=== PATIENT | female | born 1985 | race Caucasian/White ===

== ENCOUNTER 2017-11-29 05:54 | Day surgery (SDC) | payer OTHER, SELFPAY ==
[2017-11-29] VITALS (7 sets, daily range): BP systolic 110–156; BP diastolic 64–94; PULSE 62–79; RESP 16–18; TEMP 36.3–36.6; O2SAT 92–100; BMI 39.6
[2017-11-29 06:24] LABS: Internal QC Validated? YES +Cl - CLEAR BKGD; Pregnancy, Urine Negative Negative
--- NOTE | 2017-11-29 07:30 | CALC_PTH ---
PATIENT: PHI JURADO [place] [facility] [place][id number] AGE/SX: 32/F ROOM: RE11/29/[address]: Dr. Aminata Jovel MD : 1985 BED: DIS: 11/29/2017 SPEC #: [id number] RECD: 11/29/17 12:26 STATUS: DAY ANDREZ #: [id number] ZENA: 11/29/17 07:[address]: Aminata Jovel DEPT: SURGICAL PATHOLOGY RECD BY: Claire Chen ENTERED: 11/29/17 12:26 SP TYPE: Calculi OTHR DR: Dr. See Galvan MD Tissues: CALCULI Procedures: Surgery Specimen Level I HEADER OPERATION: Cysto, ureteroscopy, retro, laser, stent PRE-OP DIAGNOSIS: Calculus of ureter TISSUE SUBMITTED: Calculus of ureter GROSS DIAGNOSIS Calculus of ureter, removal: Unremarkable calculi (gross diagnosis only). AM:ema 11/30/17 COMMENT The calculus is submitted in its entirety for chemical stone analysis. The results from this study will be reported separately. GROSS DESCRIPTION Received in fixative is one container labeled with the patient's name and designated calculus of ureter. The specimen consists of multiple irregular fragments of bryant calculi that in aggregate measure 0.5 x 0.5 x 0.1 cm. The specimen is submitted in its entirety for chemical stone analysis. / AM:ema 11/29/17 CPT: 14389
[2017-11-29] MEDS: Cefazolin 2 GM in 0.9% Normal Saline 100 ML IV (07:42)
--- NOTE | 2017-11-29 07:47 | PCM.DC.URO ---
Discharge Diet: No Restrictions Discharge Activity: Return to Normal Activity, May not drive while taking narcotic pain medications., May Shower May resume sexual activity in: No Restrictions Call your doctor if you observe: Fever of 101 or Higher, Inability to urinate, Inability to have a bowel movement, Shortness of breath, Chest pain, Calf discomfort, Uncontrolled pain Allergies/Adverse Reactions: Allergies No Known Allergies Allergy (Verified 11/23/17 12:53) Medications to take at Discharge Escitalopram Oxalate [Lexapro] 10 mg PO DAILY 11/23/17 Primary Care Physician: See Galvan MD [Primary Care Provider] - Test Results: Test results from this visit will be discussed in further detail at your follow-up appointment, if applicable. Please Follow Up With: Aminata Jovel MD When: 1 week
[2017-11-29] MEDS: Lubricating Jelly 60 GM Tube 30 GM TOPICAL (07:50)
--- NOTE | 2017-11-29 09:02 | PCM.IMDPSTOP ---
Immediate Post-Op Note Date of Procedure: 11/29/17 Primary Surgeon/Physician: Aminata Jovel MD rn or lpn: Aminata Jovel Pre-Operative Diagnosis: right distal ureteral calculus Post-Operative Diagnosis: same Surgery/Procedure Performed:: cystoscopy, right retrograde pyelogram, right ureteroscopy, holmium laser lithotripsy, stone basket extraction, right ureteral stent insertion. Description of Surgical Findings:: large distal right ureteral stone with hydroureter above the level of the stone. removed with laser and basket extraction. stent with string left in place. Estimated Blood Loss: 3cc Specimen's removed: stone fragments Type of Anesthesia:: General Special Medications: ancef 2 grams - Admit VTE Documentation VTE Present on Admission: Yes VTE Mechan Device Prophylaxis: SCD's VTE Pharm Prophylaxis ordered?: No Reason prophylaxis not ordered:: Treatment Not Indicated
--- NOTE | 2017-11-29 09:05 | PCM.OPRPT ---
Problem List (1) Right ureteral calculus Status: Acute (2) Hydroureter on right Status: Acute Report of Operation Date of Procedure: 11/29/17 Pre-Operative Diagnosis: right distal ureteral calculus Post-Operative Diagnosis: same Surgery/Procedure Performed:: cystoscopy, right retrograde pyelogram, right ureteroscopy, holmium laser lithotripsy, stone basket extraction, right ureteral stent insertion. Description of Surgical Findings:: large distal right ureteral stone with hydroureter above the level of the stone. removed with laser and basket extraction. stent with string left in place. dance choreographer: Aminata Jovel Type of Anesthesia:: General Special Medications: ancef 2 grams Specimen's removed: stone fragments Estimated Blood Loss (mL): 3cc Description of Procedure: The patient is a 32-year-old female who has seen me in the office in regards to stone disease. We obtained a CT scan of the abdomen and pelvis with IV contrast which revealed the pelvic calculus was likely secondary to a ureteral stone. She began to develop symptoms including renal colic. After discussing the risks and benefits she agreed to proceed with surgical intervention. Patient was taken in the operating room and placed on the operating room table. Anesthesia monitored the head neck area IV access and vital signs throughout the case. Once anesthesia was a probably administered the patient was placed into dorsal lithotomy position was prepped and draped in usual sterile fashion. A cystourethroscopy revealed normal anatomy of the urethra, bladder and ureters. There were no masses, erythema or ulcerations, or foreign bodies identified. The right ureter was intubated with an 8 Tajik cone-tip catheter and a retrograde pyelogram was performed under fluoroscopic visualization. A distal obstructing stone approximately 1 cm in size was identified with hydroureter proximal to the stone. At this time a 0.035 Glidewire was passed into the renal pelvis and the SlimLine ureteroscope was used to identify the stone. The stone was lasered into multiple smaller fragments which were then removed using a 2.4 Tajik basket. Following removal of the largest stone fragments, a 6 Tajik 24 cm double-J stent was inserted with good curling achieved in the renal pelvis as well as the urinary bladder. The string was left in situ for removal of the stent in approximately 2 days. The patient tolerated the procedure well and was awakened and taken to recovery room in good condition. There were no complications during this procedure. - Complications none - Admit VTE Documentation VTE Present on Admission: Yes VTE Mechan Device Prophylaxis: SCD's VTE Pharm Prophylaxis ordered?: No Reason prophylaxis not ordered:: Treatment Not Indicated
[2017-12-05 12:07] LABS: Ca Oxalate, Dihydrate 30 % (.); Ca Oxalate, Monohydrate 40 % (.); Calcium Phosphate 30 % (.)
== END 2017-11-29 10:15 | disposition home or self-care (01) ==
LOC: SDC 05:56 → AC 05:57
PROVIDERS: Family Provider Family Medicine; PCP Family Medicine; Visit Provider Urology
PROC: 0TJ98ZZ Inspection of Ureter, Via Natural or Artificial Opening Endoscopic (ICD-10-PCS; CPT 52352; principal; 2017-11-29 07:20)
DX: N13.2 Hydronephrosis with renal and ureteral calculous obstruction (principal); F32.9 Major depressive disorder, single episode, unspecified; Z79.899 Other long term (current) drug therapy
CPT/HCPCS: 52356; 76000; 81025; 82360; 88300; J7120; C1769; C2617

== ENCOUNTER → 2020-01-22 | Outpatient (CLI) | payer OTHER, SELFPAY ==
[2020-01-22 14:39] VITALS: BMI 39.8
[2020-01-27 13:14] LABS: HPV APTIMA, High Risk Negative (Negative)
== END | disposition home or self-care (01) ==
LOC: LABSPEC 17:01
PROVIDERS: PCP Physician Assistant; Visit Provider Obstetrics & Gynecology
DX: Z12.4 Encounter for screening for malignant neoplasm of cervix (principal)
CPT/HCPCS: 87624; 88175; G0145

== ENCOUNTER → 2020-04-01 15:26 | Outpatient (CLI) | payer OTHER, SELFPAY ==
[2020-01-22 14:39] VITALS: BMI 39.8
[2020-04-01 17:14] LABS: NATERA MAILED SPECIMEN
== END ==
PROVIDERS: PCP Physician Assistant; Referring Provider Obstetrics & Gynecology; Visit Provider Obstetrics & Gynecology
DX: Z80.3 Family history of malignant neoplasm of breast (principal); Z80.41 Family history of malignant neoplasm of ovary
CPT/HCPCS: 36415

== ENCOUNTER → 2022-08-18 | Outpatient (CLI) | payer BC, SELFPAY | END | disposition home or self-care (01) | LOC: LABSPEC 15:03 | PROVIDERS: PCP Physician Assistant; Referring Provider Advanced Practice Midwife; Visit Provider Advanced Practice Midwife | DX: N89.8 Other specified noninflammatory disorders of vagina (principal) | CPT/HCPCS: 87070; 87205 ==

== ENCOUNTER 2023-01-20 08:03 | Emergency (ER) | payer BC, SELFPAY ==
[2023-01-20 08:04] VITALS: BP 135/95; PULSE 89; RESP 16; TEMP 36.2; O2SAT 100; BMI 38.9
--- NOTE | 2023-01-20 08:39 | ED.VIS.LOWEX ---
HPI History of Present Illness HPI Narrative: Patient presents with pain in her left hip that has been waxing and waning over the last 3 weeks. Patient states that became worse after doing a lot of lifting at a baseball tournament over the weekend. Patient describes her pain as constant aching but sharp with certain movements. Patient states it is worse with flexion and ambulation. Patient states she has taken some ibuprofen which has helped somewhat. Patient denies any direct trauma or injury. Patient denies any paresthesias or weakness. Chief Complaint: Lower Extremity Injury Informant: patient Onset/Context/Timing Onset: Weeks (3) Context: Gradual Onset Timing: Waxes and wanes Quality of Pain: Sharp (With movement) and Aching (Constant) Location: Left hip Worsened by: Flexion, ambulation Relieved by: Ibuprofen Associated Symptoms Associated Symptoms: Negative for Parasthesia, Weakness or Loss of Funtion PFSH [facility] Medical History Anxiety delivery delivered Home Medications rimegepant 75 mg disintegrating tablet (Nurtec ODT) 75 mg PO ONCE PRN migraine headache 08/18/22 [History Last Taken Unknown] hydrochlorothiazide 25 mg tablet 25 mg PO DAILY 01/20/23 [History Last Taken Unknown] hydrocodone-acetaminophen 5-325mg 5mg-325mg 1 tab PO Q6H PRN PRN Pain 3 days #10 TABLETS 01/20/23 [Rx Last Taken Unknown] Allergy/AdvReac Type Severity Reaction Status Date / Time No Known Allergies Allergy Verified 01/20/23 08:09 Family History Mother Diabetes Grandmother Breast cancer maternal Ovarian cancer paternal Aunt Breast cancer Surgical History Encounter for tubal ligation H/O lithotripsy Social History Smoking Status: Never smoker alcohol intake: current details: social substance use type: does not use caffeine: Yes what type of physical activity do you participate in: walking, yoga, aerobics and weight training frequency: 3-4 times per week seatbelt use: always do you feel safe at home: Yes additional social history: Valentín- Data Center Manager at [employer] Patient works at the [employer] [facility] ROS ED Constitutional Constitutional ED: Denies chills or fever(s) Eyes Eyes: Denies blurry vision or change in vision ENT ENT ED: Denies rhinorrhea or sore throat Cardiovascular Cardiovascular: Denies chest pain or palpitations Respiratory/Chest Respiratory/Chest: Denies cough or dyspnea Gastrointestinal Gastrointestinal: Denies nausea or vomiting Genitourinary Genitourinary ED: Denies dysuria or hematuria Musculoskeletal Musculoskeletal: Denies back pain or neck pain Integumentary Denies abscess or rash Neurologic Neurologic: Denies headache(s) or weakness Allergic/Immunologic Allergic/Immunologic ED: Denies mouth swelling or urticaria EXAM Physical Exam Const Vital Signs: 01/20/23 08:04 Temperature 97.2 F L Temperature Source Temporal Pulse Rate 89 Respiratory Rate 16 Blood Pressure 135/95 H Blood Pressure Mean 108 Pulse Ox 100 Oxygen Delivery Method Room Air Positive well nourished, well developed and obese General Appearance ED: well developed and NAD Nutritional Appearance: obese HEENT Reports moist mucous membranes Neck full ROM and supple Extremity Extremity Narrative: There is no tenderness to palpation, edema, or ecchymosis noted. There is pain with active and passive flexion and abduction. There is also pain with active and passive internal rotation. There is no pain with external rotation. There is some tenderness with axial loading. There is good range of motion. There is no deformity noted. Pedal pulses are equal bilaterally. Sensation was intact to light touch bilaterally in the lower extremities. Neuro oriented x3, CN's II-XII intact bilaterally, moves all extremities and no sensory deficits noted Sensorium / Orientation: alert Motor Exam: strength 5/5 throughout Psych mental status grossly normal MDM MDM MDM Narrative Medical decision making narrative: Differential diagnosis includes arthritis, degenerative changes, labral tear, ligamentous injury, occult fracture. X-rays of the left hip will be obtained to assess for degenerative arthritis and fracture. Radiography X-Ray: Left Hip, Read by ED Physician, Read by Radiologist, No Fracture and Normal Bony Alignment Diagnostic Testing: Clinical Impression(s) from Imaging Studies Hip/Pelvis X-Ray 01/20/23 08:56 IMPRESSION: Normal x-ray examination of the pelvis and hip. Electronically Signed: Devin Burrell MD at 10:08 EDT , X-rays of the left hip were obtained. There are 3 views. On my independent interpretation, there is no acute fracture or dislocation. There is questionable degenerative changes noted in the posterior acetabulum. Radiologist also interpreted the x-rays and does not feel there are any degenerative changes. Treatment and Re-Evaluation Narrative: Patient was advised of her findings. Patient was instructed to use ice to the area. Patient was instructed to continue ibuprofen as needed for pain. Patient was given a prescription for a short course of [place]. Patient was instructed to follow-up with her primary care physician in 5 to 7 days. Patient was advised she may need physical therapy or an MRI if this continues to be a problem. Patient understood and was agreeable with the plan. All questions were answered. Discharge Plan Triage Chief Complaint: Lower Extremity Injury ED Provider: Corby Cazares Dx/Rx/DC Orders Clinical Impression: Acute pain of left hip, Obesity (BMI 35.0-39.9 without comorbidity) Instructions: ED Arthralgia, ED Hip Strain Prescriptions: New hydrocodone-acetaminophen [hydrocodone-acetaminophen] 5-325 mg tablet 1 tab PO Q6H PRN PRN (Reason: Pain) 3 Days Qty: 10 0RF No Action Nurtec ODT 75 mg tablet,disintegrating 75 mg PO ONCE PRN (Reason: migraine headache) Rx Instructions: as a single dose hydrochlorothiazide 25 mg tablet 25 mg PO DAILY Primary Care Provider: Ravindra Almanzar Referrals: Ravindra Almanzar PA [Primary Care Provider] - 5-7 Days Activity Restrictions/Additional Instructions: Continue ibuprofen as needed for pain. Use ice to your left hip for 15 to 20 minutes at a time. Disposition Disposition: Home, Self Care
--- NOTE | 2023-01-20 08:56 | RAD_ITS ---
STUDY: X-RAY - PELVIS AND LEFT HIP REASON FOR EXAM: Female, 37 years old. Injury/Pain TECHNIQUE: 3 views of the pelvis and hip. COMPARISON: None. FINDINGS: There is a non-specific bowel gas pattern. Normal visualized soft tissue structures. Normal bilateral iliac wings, sacroiliac joints and visualized sacrum. Normal bilateral superior and inferior pubic rami. Normal pubic symphysis. Normal bilateral ischial tuberosities. Normal visualized femoral head. Normal acetabulum. Normal hip joint. RAD/HIP, UNI W/ Pelvis 2-3 Views IMPRESSION: Normal x-ray examination of the pelvis and hip. Electronically Signed: Devin Burrell MD at 10:08 EDT ,
[2023-01-20 10:32] VITALS: BP 131/74; PULSE 68; RESP 15; O2SAT 98
== END 2023-01-20 10:33 | disposition home or self-care (01) ==
PROVIDERS: Emergency Provider Emergency Medicine; PCP Physician Assistant; Visit Provider Emergency Medicine
DX: M25.552 Pain in left hip (principal); E66.9 Obesity, unspecified; Z68.38 Body mass index [BMI] 38.0-38.9, adult
CPT/HCPCS: 73502; 99282

== ENCOUNTER → 2024-09-12 | Outpatient (CLI) | payer OTHER, SELFPAY ==
--- OUTSIDE RECORDS SUMMARY | 2024-09-12 21:37 | XMS RPT_ITS | CCD ---
Author Organization [facility] Care Team Providers Care Project Management Engineer Name Role Phone NELSON Pimentel Primary Care Provider NELSON Pimentel Referring Provider [phone] SHANTELLE Mendoza Attending Provider Ravindar Almanzar PA-C Primary Care Provider Yolis vailable RAVINDRA ALMANZAR Primary Care Unavailable Ravindra Pimentel Referring Unavailable Ravindra Pimentel Primary Care Unavailable Victoria Goldberg Attending Unavailable Ravindra Pimentel Primary Care Provider Ravindra Pimentel Referring Provider Victoria Snell Attending Provider Medications Current Medications Medication Drug Class(es) Dates Sig (Normalized) Sig (Original) hydroCHLOROthiazide 25 mg oral tablet (6 sources) Thiazide Diuretic Start: 3 take 1 tablet by mouth once daily Hydrochlorothiazide 25 mg tablet Active 25 mg PO DAILY January 20, 2023 12:00am Start: 01-22-2020 End: 01-20-2023 take 1 tablet by mouth once daily Hydrochlorothiazide 12.5 mg tablet Discontinued 12.5 mg PO DAILY January 22, 2020 12:00am January 20, 2023 8:54am Start: 11-10-2018 take 1 tablet by cub[place] th once daily hydroCHLOROthiazide (HYDRODIURIL, ESIDRIX) 25 mg tablet Take 25 mg by mouth once daily. 0 11/10/2018 Active Comment on above: Take 25 mg by mouth once daily. Completed/Discontinued Medications Medication Drug Class(es) Dates Sig (Normalized) Sig (Original) acetaminophen 325 mg / HYDROcodone bitartrate 5 mg oral tablet (2 sources) Opioid Agonist Start: 01-20-2023 End: 09-12-2024 Hydrocodone-Acetami nophen 5-325 mg tablet Discontinued 1 {tbl} PO EVERY 6 HOURS NEEDED as needed for Pain 10 January 20, 2023 September 12, 2024 10:40am Start: 01-20-2023 take 1 tablet by cuba th every six hours as needed Hydrocodone-Acetaminophen Active 1 TABLE T PO EVERY 6 HOURS NEEDED 10 January 20, 2023 acetaminophen 325 mg / oxyCODONE hydrochloride 5 mg oral tablet (3 sources) Opioid Agonist Start: 11-29-2017 End: 01-22-2020 Oxycodone-Acetaminophen 1 TABLET tablet Discontinued 1 - 2 {tbl} PO EVERY 6 HOURS NEEDED as needed for Pain 14 08November 29, 2017 12:00am January 22, 2020 2:39pm Start: 11-29-2017 End: 01-22-2020 take 1 tablet by mouth every six hours as needed Oxycodone-Acetaminophen Discontinued 1 - 2 TABLET PO EVERY 6 HOURS NEEDED 20 November 29, 2017 12:00am January 22, 2020 2:39pm cephalexin 500 mg oral capsule (3 sources) Cephalosporin Antibacterial Start: 11-29-2017 End: 01-22-2020 take 1 capsule by mouth every twelve hours Cephalexin 500 MG capsule Discontinued 500 mg PO EVERY 12 HOURS 08 28November 29, 2017 12:00am January 22, 2020 2:39pm escitalopram 10 mg oral tablet (3 sources) Serotonin Reuptake Inhibitor Start: 11-23-2017 End: 01-22-2020 take 1 tablet by mouth once daily Escitalopram Oxalate 10 MG tablet Discontinued 10 mg PO DAILY November 23, 2017 12:00am January 22, 2020 2:39pm metroNIDAZOLE 500 mg oral tablet (2 sources) Nitroimidazole Antimicrobial Start: 08-24-2022 End: 08-31-2022 take 1 tablet by mouth twice daily Metronidazole 500 mg tablet Discontinued 500 mg PO TWICE A DAY 14 August 24, 2022 12:00am August 30, 2022 12:00am August 31, 2022 12:04am phenazopyridine hydrochloride 200 mg oral tablet (3 sources) Start: 11-29-2017 End: 01-22-2020 take 1 tablet by mouth every eight hours as needed for muscle spasms Phenazopyridine 200 MG tablet Discontinued 200 mg PO EVERY 8 HOURS NEEDED as needed for Bladder Spasms 20 5 November 29, 2017 9:10am January 22, 2020 2:40pm rimegepant 75 mg disintegrating oral tablet (4 sources) Start: 12-23-2022 NURTEC ODT 75 mg disintegrating tablet Start: 08-18-2022 End: 09-12-2024 take 1 tablet by mouth once as needed for headache Rimegepant (Nurtec Odt) 75 mg tablet,disintegrating Discontinued 75 mg PO ONCE as needed for migraine headache August 18, 2022 12:00am September 12, 2024 10:40am as a single dose Problems Active Problems Problem Classification Problem Date Documented Date Episodic/Chronic Calculus of urinary tract (3 sources) Ureteric stone; Translations: [Calculus of ureter] 01-22-2020 Episodic Genitourinary symptoms and ill-defined conditions (1 source) Female stress incontinence; Translations: [Stress incontinence (female) (male)] Onset: 07-01-2015 07-01-2015 Chronic Inflammatory diseases of female pelvic organs (1 source) Bacterial vaginosis; Translations: [Acute vaginitis] 08-24-2022 Episodic Nonmalignant breast conditions (2 sources) Breast lump; Translations: [Unspecified lump in unspecified breast] 09-12-2024 Episodic Other diseases of kidney and ureters (3 sources) Hydroureter; Translations: [Hydroureter] 01-22-2020 Episodic Other female genital disorders (2 sources) Vaginal discharge; Translations: [Other specified noninflammatory disorders of vagina] 08-18-2022 Episodic Other female genital disorders (1 source) Other specified noninflammatory disorders of vagina; Translations: [Leukorrhea, not specified as infective] 08-18-2022 Episodic Other non-traumatic joint disorders (2 sources) Hip pain; Translations: [Pain in left hip] 01-20-2023 Episodic Other nutritional; endocrine; and metabolic disorders (2 sources) Body mass index 30+ - obesity; Translations: [Obesity, unspecified] 01-20-2023 Chronic Other upper respiratory infections (1 source) Sore throat symptom; Translations: [Acute pharyngitis, unspecified] 12-27-2022 Episodic Residual codes; unclassified (4 sources) Family history of cancer; Translations: [Family history of malignant neoplasm, unspecified] 02-10-2021 Episodic Comment on above: ovarian and breast, Empower: negative additional findings VUS PDGFRA, will fu to see if any additional testing indicated, [facility] recommends yearly mamm. starting at age 40 Residual codes; unclassified (1 source) Family history of malignant neoplasm, unspecified; Translations: [Family history of unspecified malignant neoplasm] 08-18-2022 Episodic Past or Other Problems Problem Classification Problem Date Documented Da te Episodic/Chronic Other and delivery including normal (1 source) Normal ; Translations: [Encounter for supervision of normal , unspecified, unspecified trimester] Onset: 07-02-2015 07-02-2015 Episodic Residual codes; unclassified (1 source) Gestation period, 39 weeks; Translations: [39 weeks gestation of ] Onset: 07-10-2015 07-10-2015 Episodic Results Test Name Value Interpretation Reference Range Facility [facility] 12-27-2022 CNOV Office Visit (UCTR ) LISA NGUYEN ([id number]) 1985 F Date Time Provider Department 12/27/22 9:30 AM LUANNE BRINK [facility] During your visit today, we recorded the following information about you: Temperature Pulse Respiration Blood pressure 97.4 degrees 76/minute 18/minute 122/85 Weight 101.6 kg Luanne Brink APRN.HUONG 12/27/2022 9:58 AM Signed Subjective HPI Nontoxic-appearing female presents urgent care chief complaint headache sore throat. Duration of symptoms 2 days. Associated symptoms listed above. Headache has improved. History of migraines this was not as severe. Concerned about possible strep throat. States son tested positive for strep throat last week. Has not used any OTC medications. Denies any difficulty swallowing and secretions decreased range of motion of neck. Denies any fever body aches chills productive cough chest pain shortness of breath pleuritic pain hemoptysis nausea vomiting abdominal pain change in bowel or bladder habits. Past medical history prescription medication use and allergies reviewed. .Patient presents with: Sore Throat: GAUTHIER x2 days, strep exposure PAST MEDICAL HISTORY Diagnosis Date Fibroid uterus Hypertension Migraine Renal calculi S/P x2 Status post tubal ligation PAST SURGICAL HISTORY Procedure Laterality Date DELIVERY AND CARE ONL 08/2010, 06/2015 CYSTOSCOPY AND TREATMENT stone removal from ureter TUBAL LIGATION HX ALLERGIES Patient has no known allergies. MEDICATIONS NURTEC ODT 75 mg disintegrating tablet hydroCHLOROthiazide (HYDRODIURIL, ESIDRIX) 25 mg tablet Take 25 mg by mouth once daily. FAMILY HISTORY Problem Relation Age of Onset Breast Cancer Maternal Grandmother Cancer Paternal Grandmother ovarian Diabetes Mother Hypertension Father Social History Tobacco Use Smoking status: Never Smokeless tobacco: Never Substance Use Topics Alcohol use: No Drug use: No BP 122/85 Pulse 76 Temp 36.3 ?C (97.4 ?F) Resp 18 Wt 101.6 kg (224 lb) LMP 02/17/2021 (Exact Date) SpO2 97% BMI 39.68 kg/m? Review of Systems Constitutional: Negative for chills, fever and malaise/fatigue. HENT: Positive for sore throat. Negative for congestion, ear discharge, ear pain and sinus pain. Eyes: Negative for blurred vision, pain, discharge and redness. Respiratory: Negative for cough, hemoptysis, sputum production, shortness of breath, wheezing and stridor. Cardiovascular: Negative for chest pain. Gastrointestinal: Negative for abdominal pain, diarrhea, nausea and vomiting. Musculoskeletal: Negative for myalgias. Skin: Negative for itching and rash. Neurological: Positive for headaches. Negative for dizziness. Objective Physical Exam Constitutional: General: She is not in acute distress. Appearance: She is not diaphoretic. HENT: Head: Normocephalic. Jaw: No trismus, tenderness, swelling or pain on movement. Right Ear: Tympanic membrane, ear canal and external ear normal. Left Ear: Tympanic membrane, ear canal and external ear normal. Nose: Nose normal. Mouth/Throat: Lips: [place]. Mouth: Mucous membranes are moist. Pharynx: Oropharynx is clear. Uvula midline. Posterior oropharyngeal erythema present. No pharyngeal swelling, oropharyngeal exudate or uvula swelling. Eyes: Conjunctiva/sclera: Conjunctivae normal. Pupils: Pupils are equal, round, and reactive to light. Cardiovascular: Rate and Rhythm: Normal rate and regular rhythm. Heart sounds: Normal heart sounds. Pulmonary: Effort: Pulmonary effort is normal. No tachypnea, accessory muscle usage or respiratory distress. Breath sounds: Normal breath sounds. No stridor. No wheezing, rhonchi or rales. Abdominal: General: There is no distension. Palpations: Abdomen is soft. Tenderness: There is no abdominal tenderness. There is no guarding or rebound. Musculoskeletal: Cervical back: Normal range of motion and neck supple. No edema, erythema, rigidity or tenderness. No pain with movement. Normal range of motion. Lymphadenopathy: Cervical: No cervical adenopathy. Skin: General: Skin is warm and dry. Neurological: Mental Status: She is alert and oriented to person, place, and time. ASSESSMENT/PLAN: 1. Sore throat - ICD9: 462, ICD10: J02.9 - STREP A MOLECULAR (POC) Strep test negative. Diagnosed with viral pharyngitis. Patient was educated on supportive therapies. Patient will follow up with primary care provider as needed. Patient was instructed to immediately proceed to emergency room for any new, worsening, or symptoms lasting longer than anticipated. The patient's clinical presentation is otherwise unremarkable at this time. Based on exam and clinical finding, the patient is stable for discharge. Plan of care was discussed with patient. Patient verbalizes understanding an (more content not included)... Normal [facility] STREP A MOLECULAR (POC)on Procedural Control Valid [facility] Strep A (POCT) Negative Negative [facility] Thin prep Papanicolaou smear with manual screeningOrdered By: Shameka Mendoza on 08-21-2022 Genital Culture G. vaginalis (Presumptive) [facility] Gram stain for investigation of transfusion reactionOrdered By: Shameka Mendoza on 08-19-2022 Microscopic observation Gram stain Nom (Unsp spec) [facility] CNOVon 05-19-2022 CNOV Office Visit (UCWSTR ) LISA NGUYEN ([id number]) 1985 F Date Time Provider Department 05/19/22 4:15 PM ESTEFANIA MONTAGUEWSTR During your visit today, we recorded the following information about you: Temperature Pulse Respiration Blood pressure 98.4 degrees 76/minute 16/minute 108/64 Weight 99.5 kg Etsefania Montague PA-C 05/19/2022 4:47 PM Signed This note was created using Lobsterriter. Subjective Lisa Nguyen is a 36 year old female. HPI Patient presents with headache and sore throat that started this morning. Both of her children are positive for strep as well as her mom. No cough or congestion. No runny nose. No vomiting or diarrhea. Her ears do feel somewhat full. No fever. Review of Systems Constitutional: Negative. HENT: Positive for sore throat. Negative for congestion, ear pain and rhinorrhea. Respiratory: Negative for cough. Cardiovascular: Negative. Gastrointestinal: Negative. Genitourinary: Negative. Musculoskeletal: Negative. Neurological: Positive for headaches. All other systems reviewed and are negative. PAST MEDICAL HISTORY Diagnosis Date Fibroid uterus Hypertension Migraine Renal calculi S/P x2 Status post tubal ligation Current Outpatient Medications Medication Sig Dispense Refill hydroCHLOROthiazide (HYDRODIURIL, ESIDRIX) 25 mg tablet Take 25 mg by mouth once daily. No current facility-administered medications for this visit. PAST SURGICAL HISTORY Procedure Laterality Date DELIVERY AND CARE ONL 08/2010, 06/2015 CYSTOSCOPY AND TREATMENT stone removal from ureter TUBAL LIGATION HX FAMILY HISTORY Problem Relation Age of Onset Breast Cancer Maternal Grandmother Cancer Paternal Grandmother ovarian Diabetes Mother Hypertension Father Social History Tobacco Use Smoking status: Never Smokeless tobacco: Never Substance Use Topics Alcohol use: No Drug use: No Objective BP 108/64 Pulse 76 Temp 36.9 ?C (98.4 ?F) (Tympanic) Resp 16 Wt 99.5 kg (219 lb 6.4 oz) LMP 02/17/2021 (Exact Date) SpO2 99% BMI 38.86 kg/m? Physical Exam Vitals reviewed. Constitutional: Appearance: Normal appearance. HENT: Head: Normocephalic and atraumatic. Right Ear: Tympanic membrane, ear canal and external ear normal. Left Ear: Tympanic membrane, ear canal and external ear normal. Nose: Nose normal. Mouth/Throat: Mouth: Mucous membranes are moist. Pharynx: Posterior oropharyngeal erythema present. No oropharyngeal exudate. Cardiovascular: Rate and Rhythm: Normal rate and regular rhythm. Heart sounds: Normal heart sounds. Pulmonary: Effort: Pulmonary effort is normal. Breath sounds: Normal breath sounds. Musculoskeletal: Cervical back: Neck supple. Lymphadenopathy: Cervical: No cervical adenopathy. Skin: General: Skin is warm and dry. Findings: No rash. Neurological: General: No focal deficit present. Mental Status: She is alert. Assessment and Plan ASSESSMENT/PLAN: 1. Sore throat - ICD9: 462, ICD10: J02.9 - Alere Strep Test neg, no culture pending - Discussed supportive care treatment with fluids, rest and analgesia. - The patient may also use warm salt water gargles, throat lozenges and/or OTC throat spray as needed. - The patient should follow up in 3-5 days if symptoms persist or worsen - STREP A MOLECULAR (POC) Estefania Montague PA-C Referring Provider: SELF [200] Allergies As of Date: 05/19/2022 (No Known Allergies) Date Reviewed: 05/19/2022 Reviewed by: Starr Bello LPN - Fully Assessed Reason for Visit: Sore Throat [200] Cmt: ST and GAUTHIER x 1 day Primary Visit Diagnosis:Sore throat [J02.9] Order(s):STREP A MOLECULAR (POC) [0468380] Order #: [id number]. #:[id number] Prescriptions as of 05/19/2022 - hydroCHLOROthiazide (HYDRODIURIL, ESIDRIX) 25 mg tablet Take 25 mg by mouth once daily. Problem List As Of Date 05/19/2022 Noted Resolved Encounter for supervision of normal i*12/23/2014 01/20/2015 Encounter for supervision of normal first pregn*01/20/2015 07/10/2015 Urinary, incontinence, stress female [N39.3] 07/01/2015 Supervision of repeat term [Z34.90] 07/02/2015 39 weeks gestation of [Z3A.39] 07/10/2015 Encounter Status:Closed by ESTEFANIA MONTAGUE on 05/19/22 Normal [facility] Vital Signs Date Time Vital Sign Value Performing Clinician Facility 09-12-2024 10:37-0400 Body height 160.02 cm Ravindra DAMON Work Phone: [facility] 09-12-2024 10:37-0400 Body mass index (BMI) [Ratio] 34.7 kg/m2 Ravindra DAMON Work Phone: [facility] 09-12-2024 10:37-0400 Body weight 89.07 kg Ravindra DAMON Work Phone: [facility] 09-12-2024 10:37-0400 Diastolic blood pressure 87 mm[Hg] Ravindra DAMON Work Phone: [facility] 09-12-2024 10:37-0400 Systolic blood pressure 130 mm[Hg] Ravindra DAMON Work Phone: [facility] 01-20-2023 10:32-0400 Diastolic blood pressure 74 mm[Hg] [facility] 01-20-2023 10:32-0400 Heart rate 68 /min [facility] 01-20-2023 10:32-0400 Respiratory rate 15 /min [facility] 01-20-2023 10:32-0400 SaO2% (BldA) [Mass fraction] 98 % [facility] 01-20-2023 10:32-0400 Systolic blood pressure 131 mm[Hg] [facility] 01-20-2023 08:04-0400 Body height 160.[address] [facility] 01-20-2023 08:04-0400 Body mass index (BMI) [Ratio] 38.9 kg/m2 [facility] 01-20-2023 08:04-0400 Body temperature 97.2 [degF] [facility] 01-20-2023 08:04-0400 Body weight 99.[address] [facility] 12-27-2022 09:28-0400 Body temperature 97.39 [degF] Luanne Brink APRN.FAMILY WELFARE SOCIAL WORK PROFESSOR Work Phone: [facility] 12-27-2022 09:28-0400 [facility] COCK[facility] LOUNGE MANAGER.FAMILY WELFARE SOCIAL WORK PROFESSOR Work Phone: [facility] 12-27-2022 09:28-0400 Diastolic blood pressure 85 mm[Hg] [facility] COCKTAIL LOUNGE MANAGER.FAMILY WELFARE SOCIAL WORK PROFESSOR Work Phone: [facility] 12-27-2022 09:28-0400 Heart rate 76 /min [facility] COCKTAIL LOUNGE MANAGER.FAMILY WELFARE SOCIAL WORK PROFESSOR Work Phone: [facility] 12-27-2022 09:28-0400 Respiratory rate 18 /min [facility] COCKTAIL LOUNGE MANAGER.FAMILY WELFARE SOCIAL WORK PROFESSOR Work Phone: [facility] 12-27-2022 09:28-0400 SaO2% (BldA) [Mass fraction] 97 % [facility] COCKTAIL LOUNGE MANAGER.FAMILY WELFARE SOCIAL WORK PROFESSOR Work Phone: [facility] 12-27-2022 09:28-0400 Systolic blood pressure 122 mm[Hg] [facility] COCKTAIL LOUNGE MANAGER.FAMILY WELFARE SOCIAL WORK PROFESSOR Work Phone: [facility] 08-18-2022 13:25-0400 Body height 160.02 cm NELSON DAMON Work Phone: [facility] 08-18-2022 13:25-0400 Body mass index (BMI) [Ratio] 38.7 kg/m2 NELSON DAMON Work Phone: [facility] 08-18-2022 13:25-0400 Body weight 99.1 kg NELSON DAMON Work Phone: [facility] 08-18-2022 13:25-0400 Diastolic blood pressure 82 mm[Hg] NELSON DAMON Work Phone: [facility] 08-18-2022 13:25-0400 Systolic blood pressure 122 mm[Hg] NELSON DAMON Work Phone: [facility] Encounters Encounter Date Encounter Type Care Provider Facility Start: 09-12-2024 End: 09-12-2024 ambulatory Ravindra DAMON Facility:[facility] Start: 09-12-2024 End: 09-12-2024 Patient encounter procedure Victoria AGUERO [facility] Work Phone: Start: 01-20-2023 End: 01-20-2023 Emergency department patient visit [facility] Work Phone: Start: 12-27-2022 End: 12-27-2022 ambulatory RAVINDRA ALMANZAR Facility:[facility] Start: 12-27-2022 End: 12-27-2022 Office outpatient visit 15 minutes Luanne Brink APRN.FAMILY WELFARE SOCIAL WORK PROFESSOR Work Phone: [facility] Comment on above: Sore throat (Primary Dx) Start: 08-18-2022 End: 08-18-2022 ambulatory NELSON DAMON Work Phone: [facility] Work Phone: Start: 08-18-2022 End: 08-18-2022 Patient encounter procedure NELSON DAMON Work Phone: [facility]-Laboratory, Specimen Start: 08-18-2022 End: 08-18-2022 Patient encounter procedure NELSON DAMON Work Phone: [facility] Start: 05-19-2022 End: 05-19-2022 [facility] Procedures Date Procedure Procedure Detail Performing Clinician Start: 01-20-2023 Plain x-ray of pelvi s and lower extremity Start: 12-27-2022 STREP A MOLECULAR (POC) Dahiana Mills APRN.FAMILY [employer] SOCIAL WORK PROFESSOR Work Phone: Cytopathology proced ure, preparation of smear, genital source NELSON DAMON Work Phone: Investigation of transfusion reaction NELSON DAMON Work Phone: Plan of Treatment Date Care Activity Detail Author Start: 02-25-2026 Urine microalbumin profile DTaP,Tdap,Td Vaccine (3 - Td or Tdap) [facility] Start: 01-20-2023 [facility] Start: 11-26-2022 Influenza vaccination Influenza Vacc ine (#1) [facility] Start: 03-28-2022 Depression Assessment Depression Ass essment [facility] Start: 02-12-2021 Covid-19 Vaccine (3 - Pfizer series) Covid-19 Vaccine (3 - Pfizer series) [facility] Start: 12-24-2019 Pap Testing Pap Testing [facility] Start: 09-04-2015 HPV Testing HPV Testing [facility] Start: 1985 Hepatitis B Vaccine (1 of 3 - 3-dose series) Hepatitis B Vaccine (1 of 3 - 3-dose series) [facility] Liquid based cervica l cytology screening [facility] MG Breast - bilatera l Diagnostic [facility] Patient Education ED Arthralgia ED Hip Strain [facility] Work Phone: Patient referral [facility] Work Phone: US Breast limited [facility] Immunizations Immunization Date Immunization Notes Care Provider Trent rod 12-28-2018 influenza virus vaccine, unspecified formulation Luanne Brink APRN.FAMILY WELFARE SOCIAL WORK PROFESSOR Work Phone: [facility] 05-22-2015 tetanus toxoid, redu usman diphtheria toxoid, and acellular pertussis vaccine, adsorbed Luanne Brink COCKTAIL LOUNGE MANAGER.FAMILY WELFARE SOCIAL WORK PROFESSOR Work Phone: [facility] 08-16-2010 tetanus toxoid, redu usman diphtheria toxoid, and acellular pertussis vaccine, adsorbed Luanne Brink COCKTAIL LOUNGE MANAGER.FAMILY WELFARE SOCIAL WORK PROFESSOR Work Phone: [facility] Payers Date Payer Category Payer Self-pay [id number] 2024 Unknown [id number] 2021 Unknown [id number] 2021 Unknown [employer] PPO OOS [id number] 2021-Present [phone] [address] [place] [address] PPO [id number] Unknown [id number] Social History Date Type Detail Facility Start: 08-18-2022 End: 01-20-2023 Tobacco smoking status TNIS Unknown if ever smoked [facility] Start: 1985 Sex Assigned At Female W [facility] Start: 07-15-2010 End: 01-20-2023 Tobacco smoking status TNIS Never smoked tobacco [facility] Start: 07-15-2010 Tobacco use and exposure Smokeless tobacco non-user [facility] Start: 12-27-2022 Alcohol intake Current non-dr countersinker balance screw hole of alcohol (finding) [facility] Start: 03-03-2020 End: 12-27-2022 History of Social function [facility] Start: 03-03-2020 End: 12-27-2022 Tobacco use panel [facility] National Score (1-100), lower number is lower risk Not on file [facility] Start: 1985 Sex Assigned At Not on file [facility] Medical Equipment Procedure Code Equipment Code Equipment Origin al Text Equipment Identifier Dates STENT,URETERAL PIGTAIL [id number] FDA Start: 11-29-2017 STENT,URETERAL PIGTAIL [id number] FDA Start: 11-29-2017 STENT,URETERAL PIGTAIL [id number] FDA Start: 11-29-2017 Progress note 12-27-2022 Note Date & Type Note Facility 12-27-2022 Note HNO ID: [id number] Author: Luanne Brink APRN.FAMILY WELFARE SOCIAL WORK PROFESSOR Service: ? Author Type: Nurse Practitioner Type: Progress Notes Filed: 12/27/2022 9:58 AM Note Text: Subjective HPI Nontoxic-appearing female presents urgent care chief complaint headache sore throat. Duration of symptoms 2 days. Associated symptoms listed above. Headache has improved. History of migraines this was not as severe. Concerned about possible strep throat. States son tested positive for strep throat last week. Has not used any OTC medications. Denies any difficulty swallowing and secretions decreased range of motion of neck. Denies any fever body aches chills productive cough chest pain shortness of breath pleuritic pain hemoptysis nausea vomiting abdominal pain change in bowel or bladder habits. Past medical history prescription medication use and allergies reviewed. .Patient presents with: Sore Throat: GAUTHIER x2 days, strep exposure PAST MEDICAL HISTORY Diagnosis Date Fibroid uterus Hypertension Migraine Renal calculi S/P x2 Status post tubal ligation PAST SURGICAL HISTORY Procedure Laterality Date DELIVERY AND CARE ONL 08/2010, 06/2015 CYSTOSCOPY AND TREATMENT stone removal from ureter TUBAL LIGATION HX ALLERGIES Patient has no known allergies. MEDICATIONS NURTEC ODT 75 mg disintegrating tablet hydroCHLOROthiazide (HYDRODIURIL, ESIDRIX) 25 mg tablet Take 25 mg by mouth once daily. FAMILY HISTORY Problem Relation Age of Onset Breast Cancer Maternal Grandmother Cancer Paternal Grandmother ovarian Diabetes Mother Hypertension Father Social History Tobacco Use Smoking status: Never Smokeless tobacco: Never Substance Use Topics Alcohol use: No Drug use: No BP 122/85 Pulse 76 Temp 36.3 ?C (97.4 ?F) Resp 18 Wt 101.6 kg (224 lb) LMP 02/17/2021 (Exact Date) SpO2 97% BMI 39.68 kg/m? Review of Systems Constitutional: Negative for chills, fever and malaise/fatigue. HENT: Positive for sore throat. Negative for congestion, ear discharge, ear pain and sinus pain. Eyes: Negative for blurred vision, pain, discharge and redness. Respiratory: Negative for cough, hemoptysis, sputum production, shortness of breath, wheezing and stridor. Cardiovascular: Negative for chest pain. Gastrointestinal: Negative for abdominal pain, diarrhea, nausea and vomiting. Musculoskeletal: Negative for myalgias. Skin: Negative for itching and rash. Neurological: Positive for headaches. Negative for dizziness. Objective Physical Exam Constitutional: General: She is not in acute distress. Appearance: She is not diaphoretic. HENT: Head: Normocephalic. Jaw: No trismus, tenderness, swelling or pain on movement. Right Ear: Tympanic membrane, ear canal and external ear normal. Left Ear: Tympanic membrane, ear canal and external ear normal. Nose: Nose normal. Mouth/Throat: Lips: [place]. Mouth: Mucous membranes are moist. Pharynx: Oropharynx is clear. Uvula midline. Posterior oropharyngeal erythema present. No pharyngeal swelling, oropharyngeal exudate or uvula swelling. Eyes: Conjunctiva/sclera: Conjunctivae normal. Pupils: Pupils are equal, round, and reactive to light. Cardiovascular: Rate and Rhythm: Normal rate and regular rhythm. Heart sounds: Normal heart sounds. Pulmonary: Effort: Pulmonary effort is normal. No tachypnea, accessory muscle usage or respiratory distress. Breath sounds: Normal breath sounds. No stridor. No wheezing, rhonchi or rales. Abdominal: General: There is no distension. Palpations: Abdomen is soft. Tenderness: There is no abdominal tenderness. There is no guarding or rebound. Musculoskeletal: Cervical back: Normal range of motion and neck supple. No edema, erythema, rigidity or tenderness. No pain with movement. Normal range of motion. Lymphadenopathy: Cervical: No cervical adenopathy. Skin: General: Skin is warm and dry. Neurological: Mental Status: She is alert and oriented to person, place, and time. ASSESSMENT/PLAN: 1. Sore throat - ICD9: 462, ICD10: J02.9 - STREP A MOLECULAR (POC) Strep test negative. Diagnosed with viral pharyngitis. Patient was educated on supportive therapies. Patient will follow up with primary care provider as needed. Patient was instructed to immediately proceed to emergency room for any new, worsening, or symptoms lasting longer than anticipated. The patient's clinical presentation is otherwise unremarkable at this time. Based on exam and clinical finding, the patient is stable for discharge. Plan of care was discussed with patient. Patient verbalizes understanding and agrees to plan of care. This note was generated using Teliris software. It may contain errors in wording, punctuation, or spelling. Luanne Brink APRN.HUONG [facility] History of Present illness Narrative 12-27-2022 Luanne Brink APRN.HUONG - 12/27/2022 9:41 AM EDT Note Date & Type Note Facility 12-27-2022 History of Presen t illness Narrative Subjective HPI Nontoxic-appearing female presents urgent care chief complaint headache sore throat. Duration of symptoms 2 days. Associated symptoms listed above. Headache has improved. History of migraines this was not as severe. Concerned about possible strep throat. States son tested positive for strep throat last week. Has not used any OTC medications. Denies any difficulty swallowing and secretions decreased range of motion of neck. Denies any fever body aches chills productive cough chest pain shortness of breath pleuritic pain hemoptysis nausea vomiting abdominal pain change in bowel or bladder habits. Past medical history prescription medication use and allergies reviewed. .Patient presents with: Sore Throat: GAUTHIER x2 days, strep exposure PAST MEDICAL HISTORY Diagnosis Date Fibroid uterus Hypertension Migraine Renal calculi S/P x2 Status post tubal ligation PAST SURGICAL HISTORY Procedure Laterality Date DELIVERY & CARE ONL 08/2010, 06/2015 CYSTOSCOPY AND TREATMENT stone removal from ureter TUBAL LIGATION HX ALLERGIES Patient has no known allergies. MEDICATIONS NURTEC ODT 75 mg disintegrating tablet hydroCHLOROthiazide (HYDRODIURIL, ESIDRIX) 25 mg tablet Take 25 mg by mouth once daily. FAMILY HISTORY Problem Relation Age of Onset Breast Cancer Maternal Grandmother Cancer Paternal Grandmother ovarian Diabetes Mother Hypertension Father Social History Tobacco Use Smoking status: Never Smokeless tobacco: Never Substance Use Topics Alcohol use: No Drug use: No BP 122/85 Pulse 76 Temp 36.3 C (97.4 F) Resp 18 Wt 101.6 kg (224 lb) LMP 02/17/2021 (Exact Date) SpO2 97% BMI 39.68 kg/m Review of Systems Constitutional: Negative for chills, fever and malaise/fatigue. HENT: Positive for sore throat. Negative for congestion, ear discharge, ear pain and sinus pain. Eyes: Negative for blurred vision, pain, discharge and redness. Respiratory: Negative for cough, hemoptysis, sputum production, shortness of breath, wheezing and stridor. Cardiovascular: Negative for chest pain. Gastrointestinal: Negative for abdominal pain, diarrhea, nausea and vomiting. Musculoskeletal: Negative for myalgias. Skin: Negative for itching and rash. Neurological: Positive for headaches. Negative for dizziness. Objective Physical Exam Constitutional: General: She is not in acute distress. Appearance: She is not diaphoretic. HENT: Head: Normocephalic. Jaw: No trismus, tenderness, swelling or pain on movement. Right Ear: Tympanic membrane, ear canal and external ear normal. Left Ear: Tympanic membrane, ear canal and external ear normal. Nose: Nose normal. Mouth/Throat: Lips: [place]. Mouth: Mucous membranes are moist. Pharynx: Oropharynx is clear. Uvula midline. Posterior oropharyngeal erythema present. No pharyngeal swelling, oropharyngeal exudate or uvula swelling. Eyes: Conjunctiva/sclera: Conjunctivae normal. Pupils: Pupils are equal, round, and reactive to light. Cardiovascular: Rate and Rhythm: Normal rate and regular rhythm. Heart sounds: Normal heart sounds. Pulmonary: Effort: Pulmonary effort is normal. No tachypnea, accessory muscle usage or respiratory distress. Breath sounds: Normal breath sounds. No stridor. No wheezing, rhonchi or rales. Abdominal: General: There is no distension. Palpations: Abdomen is soft. Tenderness: There is no abdominal tenderness. There is no guarding or rebound. Musculoskeletal: Cervical back: Normal range of motion and neck supple. No edema, erythema, rigidity or tenderness. No pain with movement. Normal range of motion. Lymphadenopathy: Cervical: No cervical adenopathy. Skin: General: Skin is warm and dry. Neurological: Mental Status: She is alert and oriented to person, place, and time. ASSESSMENT/PLAN: 1. Sore throat - ICD9: 462, ICD10: J02.9 - STREP A MOLECULAR (POC) Strep test negative. Diagnosed with viral pharyngitis. Patient was educated on supportive therapies. Patient will follow up with primary care provider as needed. Patient was instructed to immediately proceed to emergency room for any new, worsening, or symptoms lasting longer than anticipated. The patient's clinical presentation is otherwise unremarkable at this time. Based on exam and clinical finding, the patient is stable for discharge. Plan of care was discussed with patient. Patient verbalizes understanding and agrees to plan of care. This note was generated using Teliris software. It may contain errors in wording, punctuation, or spelling. Luanne Brink APRN.HUONG documented in this encounter [facility] Progress note 05-19-2022 Note Date & Type Note Facility 05-19-2022 Note HNO ID: [id number] Author: Estefania Montague PA-C Service: ? Author Type: Physician Household Appliance Assembler Type: Progress Notes Filed: 05/19/2022 4:47 PM Note Text: This note was created using Lobsterriter. Subjective Lisa Nguyen is a 36 year old female. HPI Patient presents with headache and sore throat that started this morning. Both of her children are positive for strep as well as her mom. No cough or congestion. No runny nose. No vomiting or diarrhea. Her ears do feel somewhat full. No fever. Review of Systems Constitutional: Negative. HENT: Positive for sore throat. Negative for congestion, ear pain and rhinorrhea. Respiratory: Negative for cough. Cardiovascular: Negative. Gastrointestinal: Negative. Genitourinary: Negative. Musculoskeletal: Negative. Neurological: Positive for headaches. All other systems reviewed and are negative. PAST MEDICAL HISTORY Diagnosis Date Fibroid uterus Hypertension Migraine Renal calculi S/P x2 Status post tubal ligation Current Outpatient Medications Medication Sig Dispense Refill hydroCHLOROthiazide (HYDRODIURIL, ESIDRIX) 25 mg tablet Take 25 mg by mouth once daily. No current facility-administered medications for this visit. PAST SURGICAL HISTORY Procedure Laterality Date DELIVERY AND CARE ONL 08/2010, 06/2015 CYSTOSCOPY AND TREATMENT stone removal from ureter TUBAL LIGATION HX FAMILY HISTORY Problem Relation Age of Onset Breast Cancer Maternal Grandmother Cancer Paternal Grandmother ovarian Diabetes Mother Hypertension Father Social History Tobacco Use Smoking status: Never Smokeless tobacco: Never Substance Use Topics Alcohol use: No Drug use: No Objective BP 108/64 Pulse 76 Temp 36.9 ?C (98.4 ?F) (Tympanic) Resp 16 Wt 99.5 kg (219 lb 6.4 oz) LMP 02/17/2021 (Exact Date) SpO2 99% BMI 38.86 kg/m? Physical Exam Vitals reviewed. Constitutional: Appearance: Normal appearance. HENT: Head: Normocephalic and atraumatic. Right Ear: Tympanic membrane, ear canal and external ear normal. Left Ear: Tympanic membrane, ear canal and external ear normal. Nose: Nose normal. Mouth/Throat: Mouth: Mucous membranes are moist. Pharynx: Posterior oropharyngeal erythema present. No oropharyngeal exudate. Cardiovascular: Rate and Rhythm: Normal rate and regular rhythm. Heart sounds: Normal heart sounds. Pulmonary: Effort: Pulmonary effort is normal. Breath sounds: Normal breath sounds. Musculoskeletal: Cervical back: Neck supple. Lymphadenopathy: Cervical: No cervical adenopathy. Skin: General: Skin is warm and dry. Findings: No rash. Neurological: General: No focal deficit present. Mental Status: She is alert. Assessment and Plan ASSESSMENT/PLAN: 1. Sore throat - ICD9: 462, ICD10: J02.9 - Alere Strep Test neg, no culture pending - Discussed supportive care treatment with fluids, rest and analgesia. - The patient may also use warm salt water gargles, throat lozenges and/or OTC throat spray as needed. - The patient should follow up in 3-5 days if symptoms persist or worsen - STREP A MOLECULAR (POC) Estefania Montague PA-C [facility] History of Past illness Narrative 01-20-2015 Note Date & Type Note Facility 01-20-2015 History of Past i llness Narrative Problem Noted Date Diagnosed Date Resolved Date Encounter for supervision of normal first in second trimester 01/20/2015 07/10/2015 Encounter for supervision of normal in first trimester 12/23/2014 01/20/2015 documented as of this encounter (statuses as of 12/27/2022) [facility] Evaluation note Note Date & Type Note Facility Evaluation note Diagnosis Onset Date Family history of cancer acu te Vaginal discharge acute Encounter for routine gyneco logical examination noneactive [facility] Work Phone: Evaluation note Note Date & Type Note Facility Evaluation note Diagnosis Sore throat- Primary Acute pharyngitis documented in this encounter [facility] Evaluation note Note Date & Type Note Facility Evaluation note No assessment information availa [facility] Work Phone: Evaluation note Note Date & Type Note Facility Evaluation note Diagnosis Onset Date Resolution Breast lump acute September 12 10:35am Family history of cancer acute September 12, 2024 10:35am Women's annual routine gynecological examination acute September 12, 2024 10:35am [facility] Work Phone: Hospital Discharge instructions Note Date & Type Note Facility Hospital Discharge instructions Additional Instructions Continue ibuprofen as needed for pain. Use ice to your left hip for 15 to 20 minutes at a time. [facility] Work Phone: Reason for referral (narrative) Note Date & Type Note Facility Reason for referral (narrative) No reason for referral information available [facility] Work Phone: Chief Complaint and Reason for Visit Chief Complaint Annual (SERVICE DELIVERY MANAGEMENT CONSULTANT) Reason for Visit Family history of ca ncer Vaginal discharge Encounter for routine gynecological examination Chief Complaint LEFT HIP PAIN Chief Complaint Admit Date Annual (SERVICE DELIVERY MANAGEMENT CONSULTANT) September 12, 2024 10:3 5am Reason for Visit Admit Date Breast lump September 12, 2024 10:3 5am Family history of cancer September 12, 2024 10:35am Women's annual routine gynecological exa mination September 12, 2024 10:35am Family History Relationship Condition Age at Onset Recorded Date/T halina mother Diabetes mellitus Unknown grandmother Malignant neoplasm of breast Unknown Malignant neoplasm of ovary Unknown aunt Malignant neoplasm of breast Unknown Advance Directives Advance Directive Response Recorded Date/ Time Living Will No November 23 8 12:58pm Power of Metal Reclamation Kettle Tender No November 23 018 12:58pm Advance Directive Response Recorded Date/ Time Living Will No January 20 8:53am Power of Metal Reclamation Kettle Tender No January 20, 2023 8:53am Summary Purpose Additional Source Comments Care Teams (unrecognized sec tion and content) Team Status: Active Member Role Status Dates Dr. See Galvan MD Family Provider Active NELSON Heath Primary Care Provider Active Team Status: Inactive Member Role Status Dates NELSON Heath Primary Care Provider, Referri ng Provider Active Shameka Mendoza CNM Attending Provider Active Team Status: Inactive Member Role Status Dates NELSON Heath Primary Care Provider Active Shameka Mendoza CNM Attending Provider, Referring Pro vider Active Project Management Engineer Relationship Specialty Start Date End Date Ravindra Almanzar PA-C PCP - General Internal Medicine 06/10/16 Team Status: Inactive Member Role Status Dates NELSON Heath Primary Care Provider Active Dr. Corby Cazares , DO Emergency Provider Active Team Status: Inactive Member Role Status Dates NELSON Heath Primary Care Provider Active Start: September 12, 2024 End: September 12, 2024 NELSON Heath Referring Provider Active Start: September 12, 2024 End: September 12, 2024 ALCI Piper Attending Provider Active Start: September 12, 2024 End: September 12, 2024 Goals (unrecognized section and content) Goals may be documented in a n alternate sectionGoals may be documented in an alternate sectionGoals may be documented in an alternate section Source Comments (unrecognize d section and content) In the event this informatio n is protected by the Federal Confidentiality of Alcohol and Drug Abuse Patient Records regulations: The Federal rules restrict any use of the information to criminally investigate or prosecute any alcohol or drug abuse patient.[facility] Reason for Visit (unrecogniz ed section and content) Reason Comments Sore Throat GAUTHIER x2 days, strep ex posure INFORMATION SOURCE (unrecogn ized section and content) DATE CREATED AUTHOR 01/01/2023 [facility] DATE CREATED AUTHOR AUTHOR'S ORGANIZ ATION 09/07/[address] [facility] FOR RECORDS PERTAINING TO PATIENTS WHO ARE OR HAVE BEEN ENROLLED IN A CHEMICAL DEPENDENCY/SUBSTANCEABUSE PROGRAM, SOME INFORMATION MAY BE OMITTED. This clinical summary was aggregated from multiple sources. Caution should be exercised in using it in the provision of clinical care. This summary normalizes information from multiple sources, and as a consequence, information in this document may materially change the coding, format and clinical context of patient data. In addition, data may be omitted in some cases. CLINICAL DECISIONS SHOULD BE BASED ON THE PRIMARY CLINICAL RECORDS. [facility] [facility]. provides no warranty or guarantee of the accuracy or completeness of information in this document.
[2024-09-17 13:08] LABS: HPV APTIMA, High Risk Negative (Negative)
== END | disposition home or self-care (01) ==
LOC: LABSPEC 11:55
PROVIDERS: PCP Physician Assistant; Referring Provider Nurse Practitioner Family; Visit Provider Nurse Practitioner Family
DX: Z12.4 Encounter for screening for malignant neoplasm of cervix (principal)
CPT/HCPCS: 87624; 88175; G0145

== ENCOUNTER → 2024-09-18 | Outpatient (CLI) | payer OTHER, SELFPAY ==
--- NOTE | 2024-09-18 13:58 | US_ITS ---
PROCEDURE: BREAST LIMITED UNILATERAL N/A REASON FOR EXAM: BREAST LUMP X 3 TECHNIQUE: BREAST LIMITED UNILATERAL COMPARISON: Prior mammogram done earlier in the day. FINDINGS: Left breast ultrasound was targeted to the lower inner quadrant of the left breast.. The breast tissue appears sonographically normal. No cyst, solid mass, or suspicious shadowing. US/Breast Limited Unilateral IMPRESSION: Impression: No sonographic abnormality is seen. Birads: BI-RADS 1: NEGATIVE. RECOMMEND ANNUAL MAMMOGRAPHIC SCREENING. Reading Location: [id number]
--- NOTE | 2024-09-18 14:06 | BI_ITS ---
EXAM: DIAG MAMM W/CAD, BILAT 09/18/2024 CLINICAL HISTORY: F, Age 39 y/o , LUMP. Grandmother with breast cancer. Aunt with breast cancer. Palpable lump in the inferior lateral aspect of the left breast. TECHNIQUE: DIAG MAMM W/CAD, BILAT. COMPARISON: Prior exam(s) dated. Baseline examination.. FINDINGS: TISSUE DENSITY: The breast tissue is composed of scattered areas of fibroglandular density. Bilateral Breast Mammographic Findings: No significant masses, calcifications or other abnormalities are identified. BI/DIAG MAMM W/CAD, BILAT IMPRESSION: No mammographic abnormality is seen. With the patient's history of a palpable lump in the inferior lateral aspect of the left breast, targeted sonographic correlation recommended. OVERALL FINAL ASSESSMENT BI-RADS 0: INCOMPLETE - NEED ADDITIONAL IMAGING EVALUATION. RECOMMENDATION: Ultrasound Recommended A letter with findings and recommendations will be mailed to the patient. Reading Location: [facility]
== END | disposition home or self-care (01) ==
LOC: OPBI 13:53
PROVIDERS: PCP Physician Assistant; Referring Provider Nurse Practitioner Family; Visit Provider Nurse Practitioner Family
DX: N63.23 Unspecified lump in the left breast, lower outer quadrant (principal); Z80.3 Family history of malignant neoplasm of breast
CPT/HCPCS: 76642; 77062; 77066; G0279